=== PATIENT | female | born 1960 | race Two or more races ===

== ENCOUNTER 2021-07-28 14:05 | Inpatient (IN) | payer MEDICAID ==
[~2021-07-28] VITALS: Ht 162.6 cm; Wt 90.3 kg
[2021-07-28] MEDS ORDERED: ACETAMINOPHEN 325 MG TAB PO ONE (14:45)
[2021-07-28 16:19] LABS: Basophils # (auto) 0 10 ^3/uL (0-0.2); Basophils % (auto) 0.1 % (0.0-2.0); Eosinophils # (auto) 0 10 ^3/uL (0-0.8); Hematocrit 43.5 % (36.0-46.0); Hemoglobin 14.5 g/dL (12.2-16.2); Lymphocytes # (auto) 0.6 10 ^3/uL (0.4-5.4); Lymphocytes % (auto) 12.1 % (10.0-50.0); Mean Corpuscular Hemoglobin 33.1 pg (28.0-32.0); Mean Corpuscular Hgb Conc. 33.4 g/dL (32.0-36.0); Mean Corpuscular Volume 99.3 fL (80.0-100.0); Monocytes # (auto) 0.5 10 ^3/uL (0-1.3); Monocytes % (auto) 10.4 % (0.0-12.0); Neutrophils # (auto) 3.7 10 ^3/uL (1.6-8.6); Neutrophils % (auto) 77.4 % (37.0-80.0); Nucleated Red Blood Cells % 0.1 %; Red Blood Cells 4.38 10^6/uL (4.0-5.20); Red Cell Distribution Width 12.6 % (11.8-14.3); White Blood Cell 4.8 10^3/uL (4.4-10.8)
[2021-07-28 16:37] LABS: Albumin 2.6 g/dL (3.4-5.0); Calcium 7.8 mg/dL (8.5-10.1)
[2021-07-28 16:39] LABS: BUN/Creatinine Ratio 16.8; Bilirubin, Total 0.5 mg/dL (0.2-1.0)
[2021-07-28] MEDS ORDERED: ONDANSETRON HCL 4 MG/2 ML VIAL IV PRN (17:30)
[2021-07-28] MEDS ORDERED: ACETAMINOPHEN 325 MG TAB PO PRN (17:30)
[2021-07-28] MEDS ORDERED: TEMAZEPAM 15 MG CAP PO PRN (17:30)
[2021-07-28] MEDS ORDERED: HYDROcodone-ACET 5/325MG TAB PO PRN (17:30)
[2021-07-28] MEDS ORDERED: NITROGLYCERIN 0.4 MG SL TAB SL PRN (17:30)
[2021-07-28] MEDS ORDERED: MORPHINE SULFATE INJECTION 2 MG/ML SYRG IV PRN (17:30)
[2021-07-28] MEDS: PIPERACILLIN-TAZOB 3.375GM 100 ML IV SCH (18:14)
[2021-07-28] MEDS ORDERED: REMDESIVIR PER PHARMACY 0 ML IV SCH (18:15)
[2021-07-28] MEDS ORDERED: SODIUM CHLORIDE 0.9% 1,000 ML IV ONE (18:30)
[2021-07-28] MEDS: SODIUM CHLORIDE 0.9% 1,000 ML IV SCH (18:44)
[2021-07-28] MEDS ORDERED: REMDESIVIR 200 MG in NS 210ml LOADING DOSE ADULT IV ONE (20:00)
[2021-07-28 22:00] VITALS: BP 107/65
[2021-07-29] MEDS: SODIUM CHLORIDE 0.9% 1,000 ML IV SCH ×3 (02:51→18:06)
[2021-07-29 02:57] VITALS: BP 107/66
[2021-07-29] MEDS ORDERED: METO25TA93 PO (03:43)
[2021-07-29] MEDS ORDERED: PRAV20TA3 PO (03:43)
[2021-07-29] MEDS ORDERED: LOSA25TA38 PO (03:43)
[2021-07-29] MEDS ORDERED: B-CO-15 OR (03:49)
[2021-07-29] MEDS ORDERED: BICT1TAB PO (03:49)
[2021-07-29] MEDS ORDERED: CHOL20007 PO (03:49)
[2021-07-29] MEDS ORDERED: ASPI1TAB20 PO (03:49)
[2021-07-29] MEDS ORDERED: POTA10TA51 PO (03:49)
[2021-07-29] MEDS ORDERED: CALC-473 PO (03:49)
[2021-07-29 05:00] VITALS: BP 119/73
[2021-07-29] MEDS: PIPERACILLIN-TAZOB 3.375GM 100 ML IV SCH ×4 (06:22→18:06)
[2021-07-29 06:53] LABS: Basophils # (auto) 0 10 ^3/uL (0-0.2); Basophils % (auto) 0.5 % (0.0-2.0); Eosinophils # (auto) 0 10 ^3/uL (0-0.8); Eosinophils % (auto) 0.2 % (0.0-7.0); Hematocrit 41.9 % (36.0-46.0); Lymphocytes # (auto) 0.6 10 ^3/uL (0.4-5.4); Lymphocytes % (auto) 19.4 % (10.0-50.0); Mean Corpuscular Hemoglobin 33.4 pg (28.0-32.0); Mean Corpuscular Hgb Conc. 33.5 g/dL (32.0-36.0); Mean Corpuscular Volume 99.8 fL (80.0-100.0); Monocytes # (auto) 0.3 10 ^3/uL (0-1.3); Monocytes % (auto) 9.3 % (0.0-12.0); Neutrophils # (auto) 2.2 10 ^3/uL (1.6-8.6); Neutrophils % (auto) 70.6 % (37.0-80.0); Nucleated Red Blood Cells % 0.2 %; Red Cell Distribution Width 12.6 % (11.8-14.3); White Blood Cell 3.2 10^3/uL (4.4-10.8)
[2021-07-29 07:10] LABS: Calcium 7.2 mg/dL (8.5-10.1)
[2021-07-29 07:13] LABS: BUN/Creatinine Ratio 15.3
[2021-07-29 07:14] LABS: Albumin 2.4 g/dL (3.4-5.0); Total Protein 5.9 g/dL (6.4-8.2)
[2021-07-29 07:15] LABS: Bilirubin, Total 0.4 mg/dL (0.2-1.0)
[2021-07-29 08:28] LABS: Urine Bacteria FEW /hpf (None Seen); Urine Blood TRACE /uL (Negative); Urine Mucus FEW (None Seen); Urine Specific Gravity 1.021 (1.001-1.035); Urine WBC 2 /hpf (0 - 5)
[2021-07-29 09:00] VITALS: BP 145/77
[2021-07-29] MEDS: DexAMETHasone SOD PHOS 10MG/1ML VIAL INJ IV SCH (09:54)
[2021-07-29] MEDS: ENOXAPARIN SOD 40 MG/0.4 ML SYRINGE SC SCH (09:55)
[2021-07-29 13:00] VITALS: BP 126/59
[2021-07-29] MEDS ORDERED: NITR100C6 PO (15:18)
[2021-07-29] MEDS ORDERED: ANAS1TAB7 PO (15:18)
[2021-07-29] MEDS ORDERED: PRO125RS PO (15:18)
[2021-07-29] MEDS: REMDESIVIR 100mg 100 MG in SODIUM CHL 0.9% 230 ML IV SCH (16:42)
[2021-07-29 17:00] VITALS: BP 145/71
[2021-07-29] MEDS: BIKTARVY PO SCH (21:42)
[2021-07-29] MEDS: NITROFURANTOIN 100 mg CAP PO SCH (21:43)
[2021-07-29] MEDS: PRAVASTATIN SODIUM 20 MG TAB PO SCH (21:51)
[2021-07-29 22:00] VITALS: BP 120/63
[2021-07-29] MEDS ORDERED: NITROFURANTOIN 100 mg CAP PO SCH (22:00)
[2021-07-30] MEDS: SODIUM CHLORIDE 0.9% 1,000 ML IV SCH ×3 (02:45→18:30)
[2021-07-30 05:14] VITALS: BP 114/69
[2021-07-30] MEDS: PIPERACILLIN-TAZOB 3.375GM 100 ML IV SCH ×5 (06:00→23:32)
[2021-07-30 09:00] VITALS: BP 117/77
[2021-07-30] MEDS: ASPirin 81 mg TAB PO SCH (09:32)
[2021-07-30] MEDS: DexAMETHasone SOD PHOS 10MG/1ML VIAL INJ IV SCH (09:32)
[2021-07-30] MEDS: ENOXAPARIN SOD 40 MG/0.4 ML SYRINGE SC SCH (09:33)
[2021-07-30] MEDS: NITROFURANTOIN 100 mg CAP PO SCH ×2 (09:33→22:39)
[2021-07-30] MEDS: LOSARTAN POTASSIUM 25 MG TAB PO SCH ×2 (09:33→10:02)
[2021-07-30] MEDS: METOPROLOL SUCCINATE XL 50 MG TAB PO SCH ×2 (09:33→10:03)
[2021-07-30] MEDS: VITAMIN B COMPLEX CAPSULE PO SCH (09:57)
[2021-07-30] MEDS: ANASTROZOLE 1 MG TABLET PO SCH (09:57)
[2021-07-30] MEDS: BIKTARVY PO SCH (09:57)
[2021-07-30] MEDS ORDERED: CALCIUM CARB 500 MG CHEW TAB PO SCH (10:00)
[2021-07-30 13:00] VITALS: BP 84/50
[2021-07-30] MEDS: REMDESIVIR 100mg 100 MG in SODIUM CHL 0.9% 230 ML IV SCH (15:24)
[2021-07-30 17:00] VITALS: BP 95/65
[2021-07-30] MEDS ORDERED: CALCIUM W/VIT D (600MG/400IU) TAB PO ONE (17:00)
[2021-07-30 22:00] VITALS: BP 130/74
[2021-07-30] MEDS ORDERED: BIKTARVY PO ONE (22:30)
[2021-07-30] MEDS: PRAVASTATIN SODIUM 20 MG TAB PO SCH (22:40)
[2021-07-31] MEDS: SODIUM CHLORIDE 0.9% 1,000 ML IV SCH (02:40)
[2021-07-31 05:00] VITALS: BP 127/81
[2021-07-31] MEDS: PIPERACILLIN-TAZOB 3.375GM 100 ML IV SCH ×3 (05:34→17:04)
[2021-07-31 09:00] VITALS: BP 132/87
[2021-07-31] MEDS ORDERED: PATIENTS OWN MEDICATION PO SCH (10:00)
[2021-07-31] MEDS ORDERED: ALPRAZolam 0.25 MG TAB PO PRN (10:30)
[2021-07-31] MEDS: DexAMETHasone SOD PHOS 10MG/1ML VIAL INJ IV SCH (10:35)
[2021-07-31] MEDS: ANASTROZOLE 1 MG TABLET PO SCH (10:35)
[2021-07-31] MEDS: BIKTARVY PO SCH (10:36)
[2021-07-31] MEDS: ASPirin 81 mg TAB PO SCH (10:36)
[2021-07-31] MEDS: VITAMIN B COMPLEX CAPSULE PO SCH (10:36)
[2021-07-31] MEDS: LOSARTAN POTASSIUM 25 MG TAB PO SCH (10:37)
[2021-07-31] MEDS: POTASSIUM CHL 10 Meq TABLET PO SCH (10:37)
[2021-07-31] MEDS: CALCIUM W/VIT D (600MG/400IU) TAB PO SCH (10:37)
[2021-07-31] MEDS: METOPROLOL SUCCINATE XL 50 MG TAB PO SCH (10:38)
[2021-07-31] MEDS: ENOXAPARIN SOD 40 MG/0.4 ML SYRINGE SC SCH (10:38)
[2021-07-31 13:00] VITALS: BP 121/79
[2021-07-31] MEDS: REMDESIVIR 100mg 100 MG in SODIUM CHL 0.9% 230 ML IV SCH (14:42)
[2021-07-31 17:00] VITALS: BP 131/84
[2021-07-31] MEDS: DIPHENOXYLATE W/ATROPINE 2.5 MG TAB PO PRN ×2 (20:00→21:42)
[2021-07-31] MEDS: PRAVASTATIN SODIUM 20 MG TAB PO SCH (21:42)
[2021-07-31 22:00] VITALS: BP 147/75
[2021-08-01 05:00] VITALS: BP 150/80
[2021-08-01 05:46] VITALS: BP 146/82
[2021-08-01] MEDS: PIPERACILLIN-TAZOB 3.375GM 100 ML IV SCH ×4 (06:00→18:09)
[2021-08-01 06:45] LABS: Albumin 2.5 g/dL (3.4-5.0); Calcium 7.9 mg/dL (8.5-10.1); Potassium 4.2 mmol/L (3.5-5.1)
[2021-08-01 06:50] LABS: BUN/Creatinine Ratio 17.9; Bilirubin, Total 0.5 mg/dL (0.2-1.0); Total Protein 6.1 g/dL (6.4-8.2)
[2021-08-01 08:30] VITALS: BP 128/85
[2021-08-01] MEDS: METOPROLOL SUCCINATE XL 50 MG TAB PO SCH (09:49)
[2021-08-01] MEDS: DexAMETHasone SOD PHOS 10MG/1ML VIAL INJ IV SCH (09:49)
[2021-08-01] MEDS: LOSARTAN POTASSIUM 25 MG TAB PO SCH (09:49)
[2021-08-01] MEDS: ASPirin 81 mg TAB PO SCH (09:50)
[2021-08-01] MEDS: CALCIUM W/VIT D (600MG/400IU) TAB PO SCH (09:50)
[2021-08-01] MEDS: POTASSIUM CHL 10 Meq TABLET PO SCH (09:50)
[2021-08-01] MEDS: BIKTARVY PO SCH (09:50)
[2021-08-01] MEDS: VITAMIN B COMPLEX CAPSULE PO SCH (09:50)
[2021-08-01] MEDS: ENOXAPARIN SOD 40 MG/0.4 ML SYRINGE SC SCH (09:50)
[2021-08-01] MEDS: ANASTROZOLE 1 MG TABLET PO SCH (09:51)
[2021-08-01 12:30] VITALS: BP 141/78
[2021-08-01] MEDS: REMDESIVIR 100mg 100 MG in SODIUM CHL 0.9% 230 ML IV SCH (15:50)
[2021-08-01 17:00] VITALS: BP 148/87
[2021-08-01] MEDS: DIPHENOXYLATE W/ATROPINE 2.5 MG TAB PO PRN (18:29)
== END 2021-08-01 19:38 | disposition left against medical advice (07) | DRG 137 ==
LOC: ER 14:05 → EDBD 14:05 → TELE 17:16 → TELE-EAST 19:59
PROVIDERS: ADMIT Internal Medicine; ATTEND Internal Medicine
PROC: XW033E5 Introduction of Remdesivir Anti-infective into Peripheral Vein, Percutaneous Approach, New Technology Group 5 (ICD-10-PCS; principal; 2021-07-28)
DX: U07.1 COVID-19 (principal); J96.01 Acute respiratory failure with hypoxia; J12.82 Pneumonia due to coronavirus disease 2019; J98.11 Atelectasis; F17.210 Nicotine dependence, cigarettes, uncomplicated; I10 Essential (primary) hypertension; E66.9 Obesity, unspecified; E88.09 Other disorders of plasma-protein metabolism, not elsewhere classified; Z85.3 Personal history of malignant neoplasm of breast; Z86.73 Personal history of transient ischemic attack (TIA), and cerebral infarction without residual deficits; Z68.34 Body mass index [BMI] 34.0-34.9, adult; Z53.29 Procedure and treatment not carried out because of patient's decision for other reasons
CPT/HCPCS: 36415; 71045; 80053; 81001; 82728; 83605; 85025; 87040; 87426; 87493; 93005; 96365; G0378; J1100; J2543

== ENCOUNTER 2021-08-08 12:21 | Inpatient (IN) | payer MEDICAID ==
[~2021-08-08] VITALS: Ht 149.9 cm; Wt 90.7 kg
[~2021-08-08 12:21] MED LIST: ANAS1TAB7 PO; ASPI1TAB20 PO; B-CO-15 OR; BICT1TAB PO; CALC-473 PO; LOSA25TA38 PO; METO25TA93 PO; NITR100C6 PO; PRAV20TA3 PO; PRO125RS PO
[2021-08-08 12:41] VITALS: BP 121/68
[2021-08-08] MEDS ORDERED: SODIUM CHLORIDE 0.9% 500 ML IV ONE (13:15)
[2021-08-08] MEDS ORDERED: DexAMETHasone SOD PHOS 10MG/1ML VIAL INJ IV ONE (13:15)
[2021-08-08] MEDS ORDERED: ACETAMINOPHEN 325 MG TAB PO PRN (18:45)
[2021-08-08] MEDS ORDERED: HYDROcodone-ACET 5/325MG TAB PO PRN (18:45)
[2021-08-08] MEDS ORDERED: DOCUSATE SOD 100 MG CAP PO PRN (18:45)
[2021-08-08] MEDS ORDERED: MORPHINE SULFATE INJECTION 2 MG/ML SYRG IV PRN (18:45)
[2021-08-08] MEDS ORDERED: ONDANSETRON HCL 4 MG/2 ML VIAL IV PRN (18:45)
[2021-08-08] MEDS ORDERED: NITROGLYCERIN 0.4 MG SL TAB SL PRN (18:45)
[2021-08-08] MEDS ORDERED: MORPHINE SULFATE 4 MG/ML SYR/VIAL IV PRN (18:45)
[2021-08-08] MEDS ORDERED: ASCORBIC ACID 500 MG TAB PO SCH (22:00)
[2021-08-08] MEDS ORDERED: ALBUTEROL SULF 2.5 MG/0.5ML(0.5%) NEB SOLN NEB SCH (22:00)
[2021-08-09] MEDS ORDERED: FAMOTIDINE (10MG/ML) 2ML VL IV SCH (10:00)
[2021-08-09] MEDS ORDERED: MULTIPLE VITAMIN TAB PO SCH (10:00)
[2021-08-09] MEDS ORDERED: ZINC SULFATE 220mg CAP or TAB PO SCH (10:00)
[2021-08-09] MEDS ORDERED: AZITHROMYCIN 500MG/ 250ML 250 ML IV SCH (10:00)
[2021-08-09] MEDS ORDERED: ENOXAPARIN SOD 40 MG/0.4 ML SYRINGE SC SCH (10:00)
== END 2021-08-08 21:00 | disposition left against medical advice (07) | DRG 137 ==
LOC: ER 12:21 → TELE 18:39
PROVIDERS: ADMIT Nurse Practitioner; ATTEND Nurse Practitioner
DX: U07.1 COVID-19 (principal); J96.01 Acute respiratory failure with hypoxia; J12.82 Pneumonia due to coronavirus disease 2019; E66.01 Morbid (severe) obesity due to excess calories; I10 Essential (primary) hypertension; Z68.41 Body mass index [BMI] 40.0-44.9, adult; Z85.3 Personal history of malignant neoplasm of breast; Z90.13 Acquired absence of bilateral breasts and nipples; Z90.710 Acquired absence of both cervix and uterus
CPT/HCPCS: 36600; 82805; G0378

== ENCOUNTER 2023-04-08 20:34 | Emergency (ER) | payer MEDICAID ==
[~2023-04-08] VITALS: Ht 144.8 cm; Wt 90.9 kg
[~2023-04-08 20:34] MED LIST changes: -B-CO-15 OR; +B-COTAB19 OR; +LOSA25TA15 PO; -LOSA25TA38 PO
[2023-04-08] MEDS ORDERED: traMADol HCL 50 MG TAB PO ONE (21:15)
[2023-04-08 23:30] VITALS: BP 131/67; PULSE 65; RESP 18; TEMP 97.8; O2SAT 98
== END 2023-04-08 23:30 | disposition home or self-care (01) ==
LOC: EDUNIT# 20:34 → EDBD 20:34 → ER 20:37
DX: N64.4 Mastodynia (principal); I10 Essential (primary) hypertension

== ENCOUNTER 2025-06-01 23:12 | Emergency (ER) | payer MEDICAID ==
[~2025-06-01] VITALS: Ht 162.6 cm; Wt 95.0 kg
[~2025-06-01 23:12] MED LIST changes: +LOSA-533 PO; -LOSA25TA15 PO
--- NOTE | 2025-06-01 23:18 | ECG ---
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
[2025-06-01] MEDS: ONDANSETRON HCL 4 MG/2 ML VIAL IV ONE (23:30)
[2025-06-01] MEDS: MORPHINE SULFATE 4 MG/ML SYR/VIAL IV ONE (23:30)
--- NOTE | 2025-06-01 23:40 | ED.PDOC ---
History of Present Illness HPI Comments 64 y/o obese F is BIBA from private residence for c/c of nonradiating, substernal chest pain, shortness of breath, and hypertension. Significant history for Breast cancer - in remission, CVA, HIV, HTN - on Lisinopril, Furosemide use, and noncompliance. Patient reports on laying on her couch sofa, watching television, when she experience sudden onset of 10/10 chest pain with difficulty breathing, this evening, 40x minutes prior to ED arrival. Pain is reported to be sol to having an 'elephant sitting on [her] chest' and feeling similar to when she had a stroke in the past. Patient then comments on checking and noticing her blood pressure being elevated at 243/120 prior to calling EMS. No modifiers. No blood thinner use. No endorsement of any recent injuries, stressors, strenuous activities, sick contacts, prior ailments, or additional pertinent events or history. Denial of any nausea, vomiting, palpitations, or further associated symptoms. Per EMS personnel report, patient was found with ST elevations at leads II, III, and aVF with two 12leadEKGs and was given ASA and had a IV line placed. Time Seen by MD: 23:20 Primary Care Provider: ERIKA Reviewed Notes: Nurses Notes, Associate Project Manager Notes, Medications, Allergies Allergies: Coded Allergies: Morphine (Verified Allergy, Severe, 06/02/25) HIVES Uncoded Allergies: OPIATES (Allergy, Severe, 04/08/23) PATIENT STATES SHE GET RASH AND CAN'T BREATHE Home Meds Active Scripts Gabapentin (Once-Daily) (Gabapentin) 300 Mg Tab, 300 MG PO Q6HP PRN, #60 TAB Prov:SARAH ALONSO MD 06/02/25 Reported Medications Nitrofurantoin Monohyd Macro (Nitrofurantoin Monohydrat) 100 Mg Cap, 1 CAP PO BID, #14 CAP 07/29/21 Promethazine Hcl (Promethegan) 12.5 Mg Sup, 25 MG PO, MG 07/29/21 Anastrozole (Anastrozole) 1 Mg Tab, 1 TAB PO DAILY, #30 TAB 5 Refills 07/29/21 B-Complex Vitamins (Vitamin B Complex) Complex Tab, 1 OR, TAB 07/29/21 Ccrnwcqenps-Smcuovtlddtiy-Xvil (Biktarvy 50-200-25 mg) 1 Tab Tab, 1 TAB PO DAILY, TAB 07/29/21 Calcium Carbonate-Cholecalcife (Oyster Calcium/D3 500-200 mg-Unit) 1 Tab Tab, 1 TAB PO DAILY, TAB 07/29/21 Aspirin (Aspir-81) 81 Mg Tab, 81 MG PO DAILY, TAB 07/29/21 Metoprolol Succinate (Metoprolol Succinate Er) 25 Mg Tab, 25 MG PO DAILY, TAB 07/29/21 Pravastatin Sodium (PRAVACHOL TABLET) 20 Mg Tb, 1 TAB PO DAILY, #30 TAB 5 Refills 07/29/21 Losartan Potassium (Losartan Potassium) 25 Mg Tab, 25 MG PO DAILY, TAB 07/29/21 Information Source: Patient, Emergency Med Personnel Mode of Arrival: EMS Severity: Moderate Timing: Hours Duration: Since onset Prehospital treatment: 12 Lead EKG, Accucheck, ASA, Forensic Dna Analyst Past Medical History PAST MEDICAL HISTORY: Cancer (breast cancer, bilateral breasts), CVA, HIV, HTN Past Medical History (Other): noncompliance current ovarian cyst Surgical History (Other): Bilateral [id number] Bilateral breast reconstructive surgery 04-06-23 ED TRANSPORTER History: Other (current ovarian cyst - 6cm ) Family History Family History: Unknown Social History Smoker: Non-Smoker Alcohol: Denies ETOH Use Drugs: Denies Drug Use Lives In: Home All Other Systems: Reviewed and Negative (Comprehensive review of systems are negative unless stated in HPI) Physical Exam General Appearance: No Apparent Distress, Obese HEENT: Normal ENT Inspection, Pharynx Normal, TMs Normal Neck: Full Range of Motion, Non-Tender, Normal, Normal Inspection Respiratory: Chest Non-Tender, Lungs Clear, No Accessory Muscle Use, No Res piratory Distress, Normal Breath Sounds Cardiovascular: No Edema, No JVD, No Murmur, No Gallop, Normal Peripheral Pulses, Regular Rate/Rhythm Breast Exam: Deferred Gastrointestinal: No Organomegaly, Non Tender, No Pulsatile Mass, Normal Bowel Sounds, Soft Genitalia: Deferred Pelvic: Deferred Rectal: Deferred Extremities: No calf tenderness, Normal capillary refill, Normal inspection, Normal range of motion, Non-tender, No pedal edema Musculoskeletal : Apperance: Normal Neurologic: Alert, frame wirer II-XII nml as Tested, No Motor Deficits, Normal Affect, Normal Mood, No Sensory Deficits Cerebellar Function: Normal Reflexes: Normal Skin: Dry, Normal Color, Warm Lymphatic: No Adenopathy Was a procedure done? Was a procedure done?: No EKG EKG : Pulse Rate (adult): 80 [place]: Normal Cardiac Rhythm: NSR Block: None Hypertrophy: None ST: Normal Differential Dx Considerations may include: NH, PE, ACS, URI, PNA, viral syndrome, anxiety, angina, gastritis, noncompliance, hypertensive emergency, among others X-Ray, Labs, Meds, VS Vital Signs Date Time Temp Pulse Resp B/P (MAP) Pulse Ox O2 Delivery O2 Flow Rate FiO2 06/02/25 02:11 72 06/02/25 02:00 84 20 159/81 (107) 98 06/02/25 01:00 84 14 146/83 (104) 100 06/02/25 00:12 77 06/02/25 00:00 75 06/01/25 23:53 98.1 80 17 154/80 (104) 100 98.1 06/01/25 23:53 80 17 100 Nasal Cannula* 2 28 06/01/25 23:40 80 06/01/25 23:30 80 17 154/80 06/01/25 23:29 92 18 200/110 98 06/01/25 23:13 80 Lab Test 06/02/25 00:06 06/01/25 23:35 Range/Units Troponin I High Sensitivity < 3 L < 3 L </=34 ng/L White Blood Count 5.7 4.4-10.8 10^3/uL Red Blood Count 3.98 L 4.0-5.20 10^6/uL Hemoglobin 13.6 12.2-16.2 g/dL Hematocrit 39.9 36.0-46.0 % Mean Corpuscular Volume 100.3 H 80.0-100.0 fL Mean Corpuscular Hemoglobin 34.2 H 28.0-32.0 pg Mean Corpuscular Hemoglobin Concent 34.1 32.0-36.0 g/dL Red Cell Distribution Width 13.1 11.8-14.3 % Platelet Count 225 140-450 10^3/uL Mean Platelet Volume 7.5 6.9-10.8 fL Neutrophils (%) (Auto) 55.4 37.0-80.0 % Lymphocytes (%) (Auto) 34.5 10.0-50.0 % Monocytes (%) (Auto) 8.0 0.0-12.0 % Eosinophils (%) (Auto) 1.6 0.0-7.0 % Basophils (%) (Auto) 0.5 0.0-2.0 % Neutrophils # (Auto) 3.1 1.6-8.6 10 ^3/uL Lymphocytes # (Auto) 2.0 0.4-5.4 10 ^3/uL Monocytes # (Auto) 0.5 0-1.3 10 ^3/uL Eosinophils # (Auto) 0.1 0-0.8 10 ^3/uL Basophils # (Auto) 0 0-0.2 10 ^3/uL Nucleated Red Blood Cells 0.0 % Prothrombin Time 10.7 9.3-11.8 sec Prothrombin Time INR 1.01 0.9-1.15 Activated Partial Thromboplast Time 27.1 24.5-34.5 SEC Sodium Level 143 136-145 mmol/L Potassium Level 4.0 3.5-5.1 mmol/L Chloride Level 107 98-107 mmol/L Carbon Dioxide Level 28 20-31 mmol/L Anion Gap 8 5-15 Blood Urea Nitrogen 11 9-23 mg/dL Creatinine 0.96 0.550-1.02 mg/dL Glomerular Filtration Rate Calc 67 >90 mL/min BUN/Creatinine Ratio 11.5 10.0-20.0 Serum Glucose 123 H 74-106 mg/dL Calcium Level 8.8 8.7-10.4 mg/dL Total Bilirubin 0.4 0.2-1.0 mg/dL Aspartate Amino Transferase (AST) 17 13-40 U/L Alanine Aminotransferase (ALT) 17 7-40 U/L Alkaline Phosphatase 84 46-116 U/L B-Type Natriuretic Peptide 26.19 0-100 pg/mL Total Protein 6.9 5.7-8.2 g/dL Albumin 4.1 3.2-4.8 g/dL Current Medications Medications (Trade) Dose Ordered Sig/Yuliana Route Start Time Stop Time Status Last Admin Aspirin 162 mg ONCE ONCE PO 06/01/25 23:30 06/01/25 23:31 DC 06/01/25 23:30 Time of 1ST Reevaluation: 23:50 Reevaluation 1ST: Unchanged Patient Education/Counseling: Treatment, Other (need for admission ) Family Education/Counseling: No Family Present SEPSIS Sepsis Screen Vital Signs Date Time Temp Pulse Resp B/P (MAP) Pulse Ox O2 Delivery O2 Flow Rate FiO2 06/02/25 02:11 72 06/02/25 02:00 84 20 159/81 (107) 98 06/02/25 01:00 84 14 146/83 (104) 100 06/02/25 00:12 77 06/02/25 00:00 75 06/01/25 23:53 98.1 80 17 154/80 (104) 100 98.1 06/01/25 23:53 80 17 100 Nasal Cannula* 2 28 06/01/25 23:40 80 06/01/25 23:30 80 17 154/80 06/01/25 23:29 92 18 200/110 98 06/01/25 23:13 80 Laboratory Tests Test 06/01/25 23:35 White Blood Count 5.7 10^3/uL (4.4-10.8) Medications Medications Dose Ordered Sig/Yuliana Route Start Time Stop Time Status Last Admin Dose Admin Aspirin 162 mg ONCE ONCE PO 06/01/25 23:30 06/01/25 23:31 DC 06/01/25 23:30 Departure 1 Departure Time of Disposition: 01:30 Impression: Primary Impression: Ovarian cyst Additional Impression: Breast pain, left Disposition: 01 HOME / SELF CARE / HOMELESS Condition: Stable e-Prescriptions Gabapentin (Once-Daily) (Gabapentin) 300 Mg Tab 300 MG PO Q6HP PRN, #60 TAB Prov: SARAH ALONSO MD 06/02/25 Discharged With: Self Critical Care Note Critical Care Time?: No Stability Stability form required: No Heart Score Heart Score: Heart Score Response (Comments) Value History Moderate Suspicious 1 EKG Normal 0 Age 45-64 1 Risk Factors >3 or Hx ASHD 2 Troponin Normal limit 0 Total 4 I personally scribed for SARAH ALONSO MD ([email or web address]) on 06/01/25 at 23:40. Electronically submitted by Ramsey Parsons ([email or web address]). I personally scribed for SARAH ALONSO MD ([email or web address]) on 06/01/25 at 23:41. Electronically submitted by Ramsey Parsons ([email or web address]). SARAH ALONSO MD Jun 01, 2025 23:40
[2025-06-01 23:53] VITALS: PULSE 80; RESP 17; TEMP 98.1; O2SAT 100
[2025-06-01 23:56] LABS: Mean Corpuscular Hemoglobin 34.2 pg (28.0-32.0); Nucleated Red Blood Cells % 0.0 %
[2025-06-01 23:58] LABS: Hematocrit 39.9 % (36.0-46.0); Hemoglobin 13.6 g/dL (12.2-16.2); Mean Corpuscular Volume 100.3 fL (80.0-100.0)
[2025-06-02 00:14] LABS: Alanine Aminotransferase 17 U/L (7-40); Albumin 4.1 g/dL (3.2-4.8); Alkaline Phosphatase 84 U/L (46-116); Anion Gap 8 (5-15); BUN/Creatinine Ratio 11.5 (10.0-20.0); Bilirubin, Total 0.4 mg/dL (0.2-1.0); Blood Urea Nitrogen 11 mg/dL (9-23); Calcium 8.8 mg/dL (8.7-10.4); Carbon Dioxide 28 mmol/L (20-31); Chloride 107 mmol/L (98-107); Glucose 123 mg/dL (74-106); Potassium 4.0 mmol/L (3.5-5.1); Sodium 143 mmol/L (136-145); Total Protein 6.9 g/dL (5.7-8.2)
--- NOTE | 2025-06-02 00:14 | ECG ---
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
[2025-06-02 00:15] LABS: INR 1.01 (0.9-1.15); Partial Thromboplastin Time 27.1 SEC (24.5-34.5); Prothrombin Time 10.7 sec (9.3-11.8)
[2025-06-02 02:00] VITALS: BP 159/81; RESP 20; O2SAT 98
[2025-06-02 02:11] VITALS: PULSE 72
--- NOTE | 2025-06-02 02:13 | ECG ---
[facility] Test Date: 2025-06-02 Test Time: 02:11:11 Pat Name: TANJA CINTRON Department: Room: Gender: F Trainmaster: ROSSANA : 1960 Requested By: EMERGENCY EMERGENCY Order Number: [id number] Reading MD: Vishnu Topete Measurements Intervals [place] Rate: 72 P: 20 [place]: 182 QRS: 38 QRSD: 100 T: 30 QT: 420 QTc: 460 Interpretive Statements Sinus rhythm Inferior infarct, old Anterior infarct, old Electronically Signed On 06-02-2025 15:45:00 PDT by Vishnu Topete Please click the below link to view image of tracing.
[2025-06-02] MEDS ORDERED: GABA300T4 PO (02:16)
== END 2025-06-02 02:41 | disposition home or self-care (01) ==
LOC: ER 23:12 → EDBD 23:12 → ER 06-02 02:41
DX: N83.209 Unspecified ovarian cyst, unspecified side (principal); N64.4 Mastodynia; I10 Essential (primary) hypertension; Z90.13 Acquired absence of bilateral breasts and nipples; Z86.73 Personal history of transient ischemic attack (TIA), and cerebral infarction without residual deficits; Z88.5 Allergy status to narcotic agent; Z79.899 Other long term (current) drug therapy
CPT/HCPCS: 36415; 80053; 83880; 84484; 85025; 85610; 85730; 93005; 99285; J2405

== ENCOUNTER 2025-08-03 13:20 | Emergency (ER) | payer MEDICAID, OTHER ==
[~2025-08-03] VITALS: Ht 149.9 cm; Wt 86.3 kg
[~2025-08-03 13:20] MED LIST changes: +GABA300T4 PO
[2025-08-03 13:22] VITALS: BP 140/100; PULSE 76; RESP 16; TEMP 97.8; O2SAT 97
== END 2025-08-03 14:44 | disposition left against medical advice (07) ==
LOC: ER 13:20
DX: R07.89 Other chest pain (principal); R51.9 Headache, unspecified; M54.2 Cervicalgia; Z53.21 Procedure and treatment not carried out due to patient leaving prior to being seen by health care provider